=== PATIENT | female | born 1990 | race Caucasian/White ===

== ENCOUNTER → 2025-06-25 | Day surgery (SDC) | payer OTHER ==
[~2025-06-25] MED LIST: BIRTHCONTROL; LACTATED RINGER'S 1,000 ML ONE; LIDOCAINE HCL 2% LOCAL INJ 5 ML SDV VIAL INJ ONE; MIDAZOLAM HCL 2 MG/2 ML VIAL ONE; PROPOFOL IV EMULSION 10 MG/ML 20 ML VIAL ONE
[2025-06-25 08:30] VITALS: BP 121/86; PULSE 100; RESP 16; TEMP 97; O2SAT 99
== END | disposition home or self-care (01) ==
LOC: OR 06:10
PROVIDERS: ATTEND Internal Medicine Gastroenterology
DX: K62.5 Hemorrhage of anus and rectum (principal); D12.4 Benign neoplasm of descending colon; K64.1 Second degree hemorrhoids; N20.0 Calculus of kidney; F41.9 Anxiety disorder, unspecified; Z88.0 Allergy status to penicillin; Z79.1 Long term (current) use of non-steroidal anti-inflammatories (NSAID)
CPT/HCPCS: 45384; 81025; J2003; J2250; J2704; J7121; 45378